=== PATIENT | female | born 1955 | race African-American/Black ===

== ENCOUNTER 2017-04-28 10:13 | Emergency (ER) | payer MEDICAID ==
[~2017-04-28] VITALS: Ht 165.1 cm; Wt 110.0 kg
[2017-04-28] MEDS ORDERED: KETOROLAC 60MG/2ML VIAL IM ONE (12:30)
[2017-04-28 12:47] VITALS: BP 126/78
== END 2017-04-28 14:45 | disposition home or self-care (01) ==
LOC: ER 11:00
DX: S22.31XA Fracture of one rib, right side, initial encounter for closed fracture (principal); Z88.0 Allergy status to penicillin; Y08.89XA Assault by other specified means, initial encounter; Y93.89 Activity, other specified; Y92.89 Other specified places as the place of occurrence of the external cause; Y99.8 Other external cause status
CPT/HCPCS: 71010; 71101; 96372; 99284; J1885; Z7610